=== PATIENT | female | born 1970 | race African-American/Black ===

== ENCOUNTER 2018-04-16 13:40 | Inpatient (IN) | payer OTHER ==
[~2018-04-16 13:40] MED LIST: MULTI VITAMIN1 EACH PO
== END 2018-04-18 13:59 | disposition home or self-care (01) | DRG 621 ==
LOC: O/R 04-17 05:10 → SURG 04-17 07:00 → SURH 04-17 19:55
PROVIDERS: Specialist
PROC: 0J080ZZ Alteration of Abdomen Subcutaneous Tissue and Fascia, Open Approach (ICD-10-PCS; principal; 2018-04-17 07:00)
PROC: 0HBV0ZZ Excision of Bilateral Breast, Open Approach (ICD-10-PCS; 2018-04-17 07:00)
DX: E65 Localized adiposity (principal); N62 Hypertrophy of breast

== ENCOUNTER 2018-04-25 20:34 | Emergency (ER) | payer OTHER ==
[~2018-04-25] VITALS: Ht 170.2 cm; Wt 102.1 kg
[2018-04-26] MEDS ORDERED: CLINDAMYCIN HC300 MG PO (07:37)
[2018-04-26] MEDS ORDERED: PERCOCET 5-3251 EACH PO (07:37)
[2018-04-26] MEDS ORDERED: CELEBREX100 MG PO (07:37)
[2018-04-26] MEDS ORDERED: INTESTINEX680 M1 PO (07:37)
== END 2018-04-26 09:07 | disposition home or self-care (01) ==
LOC: ER 20:34
DX: N61.0 Mastitis without abscess (principal); L76.82 Other postprocedural complications of skin and subcutaneous tissue